=== PATIENT | female | born 1955 | race Two or more races ===

== ENCOUNTER 2020-06-24 11:30 | Emergency (ER) | payer OTHER ==
[~2020-06-24] VITALS: Ht 152.4 cm; Wt 74.8 kg
[2020-06-24] MEDS ORDERED: CARDIZEM CD180 M1 PO (11:49)
[2020-06-24] MEDS ORDERED: METFORMIN HCL500 M3 PO (11:49)
[2020-06-24] MEDS ORDERED: LEVOTHYROXINE25 MCG PO (11:49)
[2020-06-24] MEDS ORDERED: LIPITOR20 MG PO (11:49)
[2020-06-24] MEDS ORDERED: ASA81 MG PO (11:50)
[2020-06-24] MEDS ORDERED: TESSALON PERLE100 M1 PO (15:27)
[2020-06-24] MEDS ORDERED: TUSSI PRES-B L480 ML PO (15:27)
[2020-06-24] MEDS ORDERED: ZITHROMAX500 MG PO (15:27)
== END 2020-06-24 15:31 | disposition home or self-care (01) ==
LOC: ER 11:30
DX: B34.9 Viral infection, unspecified (principal); Z03.818 Encounter for observation for suspected exposure to other biological agents ruled out; R07.89 Other chest pain; R05 Cough

== ENCOUNTER 2020-09-07 14:17 | Outpatient (CLI) | payer OTHER ==
[~2020-09-07 14:17] MED LIST: ASA81 MG PO; CARDIZEM CD180 M1 PO; LEVOTHYROXINE25 MCG PO; LIPITOR20 MG PO; METFORMIN HCL500 M3 PO; TESSALON PERLE100 M1 PO; TUSSI PRES-B L480 ML PO; ZITHROMAX500 MG PO
== END 2020-09-07 14:40 | disposition home or self-care (01) ==
LOC: MAMO-SONO 14:17
DX: N64.59 Other signs and symptoms in breast (principal); Z12.31 Encounter for screening mammogram for malignant neoplasm of breast; Z87.898 Personal history of other specified conditions

== ENCOUNTER 2021-01-30 17:00 | Emergency (ER) | payer OTHER ==
[~2021-01-30] VITALS: Ht 154.9 cm; Wt 78.0 kg
[2021-01-30] MEDS ORDERED: MOTION SICKNESS25 M1 PO (21:16)
[2021-01-30] MEDS ORDERED: ZOFRAN8 MG PO (21:16)
== END 2021-01-30 21:38 | disposition home or self-care (01) ==
LOC: ER 17:00
DX: R11.0 Nausea (principal)

== ENCOUNTER 2021-03-18 00:16 | Emergency (ER) | payer OTHER ==
[~2021-03-18] VITALS: Ht 149.9 cm; Wt 54.4 kg
[~2021-03-18 00:16] MED LIST changes: +MOTION SICKNESS25 M1 PO; +ZOFRAN8 MG PO
== END 2021-03-18 02:35 | disposition home or self-care (01) ==
LOC: ER 00:16
DX: I16.1 Hypertensive emergency (principal); I10 Essential (primary) hypertension; E11.9 Type 2 diabetes mellitus without complications

== ENCOUNTER 2022-02-17 09:50 | Outpatient (CLI) | payer OTHER | END 2022-02-17 09:53 | disposition home or self-care (01) | LOC: RAD 09:50 | PROVIDERS: ATTEND Internal Medicine | DX: R13.12 Dysphagia, oropharyngeal phase (principal); K21.9 Gastro-esophageal reflux disease without esophagitis ==

== ENCOUNTER 2022-02-20 12:33 | Outpatient (CLI) | payer OTHER | END 2022-02-20 12:39 | disposition home or self-care (01) | LOC: MAMO-SONO 12:33 | DX: Z12.31 Encounter for screening mammogram for malignant neoplasm of breast (principal) ==

== ENCOUNTER 2022-03-16 15:49 | Emergency (ER) | payer OTHER ==
[~2022-03-16] VITALS: Ht 165.1 cm; Wt 78.0 kg
== END 2022-03-16 22:10 | disposition home or self-care (01) ==
LOC: ER 15:49
DX: I10 Essential (primary) hypertension (principal); E05.90 Thyrotoxicosis, unspecified without thyrotoxic crisis or storm; E78.00 Pure hypercholesterolemia, unspecified; E11.9 Type 2 diabetes mellitus without complications; Z79.84 Long term (current) use of oral hypoglycemic drugs

== ENCOUNTER 2022-03-25 14:43 | Emergency (ER) | payer OTHER ==
[~2022-03-25] VITALS: Ht 152.4 cm; Wt 73.5 kg
== END 2022-03-25 18:15 | disposition home or self-care (01) ==
LOC: ER 14:43
DX: I10 Essential (primary) hypertension (principal); E78.00 Pure hypercholesterolemia, unspecified

== ENCOUNTER 2022-10-11 10:47 | Outpatient (CLI) | payer OTHER | END 2022-10-11 10:51 | disposition home or self-care (01) | LOC: SONOGRAMA 10:47 | DX: N18.2 Chronic kidney disease, stage 2 (mild) (principal) ==

== ENCOUNTER 2023-10-29 15:21 | Emergency (ER) | payer OTHER ==
[~2023-10-29] VITALS: Ht 152.4 cm; Wt 80.7 kg
[2023-10-29] MEDS ORDERED: SIMVASTATIN20 MG PO (15:44)
[2023-10-29] MEDS ORDERED: FAMOTIDINE/PF 20 MG in 0.9 % SODIUM CHLORIDE 8 ML IV PUSH STA (17:56)
[2023-10-29] MEDS ORDERED: 0.9 % SODIUM CHLORIDE 1,000 ML IV SCH (18:00)
[2023-10-29] MEDS ORDERED: FAMOTIDINE/PF 20 MG/2 ML VIAL ONE (18:00)
[2023-10-29] MEDS ORDERED: DIPHENOXYLATE HCL/ATROPINE 1 UDTAB TABLET PO ONE (18:00)
[2023-10-29 19:04] LABS: ALBUMIN 3.8 gm/dL (3.4-5.0); BILIRUBIN TOTAL 0.22 mg/dL (0.3-1.2); CALCIUM 9.5 mg/dL (8.5-10.1); CREATININE SERUM 0.85 mg/dL (0.55-1.02); GFR 66.31; GLOBULINA 4.7 G/DL (2.4-3.5); POTASSIUM 3.89 mEq/L (3.5-5.1); TOTAL PROTEIN 8.5 gm/dL (6.4-8.2)
[2023-10-29 19:25] LABS: HEMATOCRIT 38.2 % (36.0-45.00); HEMOGLOBIN 12.5 g/dL (12.0-15.00); MEAN CELL VOLUME 84.2 fL (80.00-100.00); MEAN CORPUSCULAR HEMOGLOBIN 27.6 pg (27.00-32.0); MEAN CORPUSCULAR HGB CONC 32.8 g/dl (32.0-36.0); PLATELET COUNT 286 K/uL (150-450); RED BLOOD COUNT 4.53 M/uL (4.00-6.00); RED CELL DISTRIBUTION WIDTH 14.2 % (11.5-14.5)
[2023-10-29] MEDS ORDERED: CIPRO500 MG PO (20:19)
[2023-10-29] MEDS ORDERED: PEPCID AC20 MG PO (20:19)
== END 2023-10-29 20:40 | disposition home or self-care (01) ==
LOC: ER 15:23
PROVIDERS: General Practice
DX: R19.7 Diarrhea, unspecified (principal); I10 Essential (primary) hypertension; E11.9 Type 2 diabetes mellitus without complications; Z79.84 Long term (current) use of oral hypoglycemic drugs
CPT/HCPCS: 36415; 74176; 96365; 96366; 99284; J3490; J7030

== ENCOUNTER 2023-11-01 13:45 | Emergency (ER) | payer OTHER ==
[~2023-11-01] VITALS: Ht 152.4 cm; Wt 80.7 kg
[~2023-11-01 13:45] MED LIST changes: +CIPRO500 MG PO; +PEPCID AC20 MG PO; +SIMVASTATIN20 MG PO
[2023-11-01] MEDS ORDERED: 0.9 % SODIUM CHLORIDE 1,000 ML IV SCH (14:45)
[2023-11-01 15:54] LABS: HEMATOCRIT 39.4 % (36.0-45.00); MEAN CELL VOLUME 83.7 fL (80.00-100.00); MEAN CORPUSCULAR HEMOGLOBIN 27.5 pg (27.00-32.0); MEAN CORPUSCULAR HGB CONC 32.9 g/dl (32.0-36.0); PLATELET COUNT 315 K/uL (150-450); RED BLOOD COUNT 4.71 M/uL (4.00-6.00); RED CELL DISTRIBUTION WIDTH 14.3 % (11.5-14.5)
[2023-11-01] MEDS ORDERED: BARIUM SULFATE 450 ML ORAL.SUSP PO ONE (16:03)
[2023-11-01 16:26] LABS: INR 1.03; PARTIAL THROMBOPLASTIN TIME 27.4 SECONDS (22.0-34.0); PROTHROMBIN TIME 11.2 SECONDS (9.0-11.5)
[2023-11-01 16:29] LABS: CALCIUM 9.8 mg/dL (8.5-10.1); CREATININE SERUM 0.9 mg/dL (0.55-1.02); GFR 62.08; POTASSIUM 3.9 mEq/L (3.5-5.1)
[2023-11-01] MEDS ORDERED: METRONIDAZOLE500 MG PO (21:18)
[2023-11-01] MEDS ORDERED: KETO10TA2 PO (21:18)
[2023-11-01] MEDS ORDERED: CIPRO500 MG PO (21:18)
[2023-11-01] MEDS ORDERED: PEPCID AC20 MG PO (21:18)
== END 2023-11-01 21:38 | disposition home or self-care (01) ==
LOC: ER 13:45
PROVIDERS: Emergency Medicine
DX: K62.5 Hemorrhage of anus and rectum (principal); K57.92 Diverticulitis of intestine, part unspecified, without perforation or abscess without bleeding; I10 Essential (primary) hypertension; E03.8 Other specified hypothyroidism; E11.9 Type 2 diabetes mellitus without complications; Z79.84 Long term (current) use of oral hypoglycemic drugs
CPT/HCPCS: 36415; 74177; 96365; 96366; 99284; J7030

== ENCOUNTER 2023-12-28 09:31 | Outpatient (CLI) | payer OTHER ==
[~2023-12-28 09:31] MED LIST changes: +KETO10TA2 PO; +METRONIDAZOLE500 MG PO
== END 2023-12-28 09:35 | disposition home or self-care (01) ==
LOC: SONOGRAMA 09:31
DX: R10.13 Epigastric pain (principal)

== ENCOUNTER → 2024-10-22 12:34 | Outpatient (CLI) | payer OTHER ==
[2024-10-22 13:53] LABS: CREATININE SERUM 0.95 mg/dL (0.55-1.02)
== END | disposition home or self-care (01) ==
LOC: LAB 12:34
PROVIDERS: ATTEND Radiology Diagnostic Radiology
DX: G45.9 Transient cerebral ischemic attack, unspecified (principal)

== ENCOUNTER 2024-10-22 13:59 | Outpatient (CLI) | payer OTHER | END 2024-10-22 14:03 | disposition home or self-care (01) | LOC: MRI 13:59 | PROVIDERS: ATTEND Ophthalmology | DX: G45.9 Transient cerebral ischemic attack, unspecified (principal) | CPT/HCPCS: 70553 ==